=== PATIENT | female | born 1970 | race Two or more races ===

== ENCOUNTER → 2024-09-11 | Outpatient (CLI) | payer OTHER, MEDICAID ==
[~2024-09-11] VITALS: Ht 172.7 cm; Wt 117.0 kg
[~2024-09-11] MED LIST: AMLO1TAB22 PO; HEPARIN 1,000 UNITS/ml 1ML VIAL ONE; IODIXANOL 320MG/ML 100ML BTL IV ONE; LIDOCAINE 2%HCL (LOCAL ANESTH.) INJ 20ML MDV ONE; LISI40TA16 PO; MIDAZOLAM HCL 2MG/2ML 2ml VIAL (1mg/ml) ONE; ONDA-155 PO; ceFAZolin 1GM/50ML 50 ML IV ONE; fentaNYL CITRATE 100 MCG/2 ML VL ONE
--- NOTE | 2024-09-11 07:38 | DVH ---
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 Lungs: No focal consolidation. Pleura: No effusion. No pneumothorax. Cardiomediastinal contours: Unremarkable Bones: No acute osseous abnormality. IMPRESSION: 1. Malpositioned right infusion catheter. Repositioning is recommended. 2. No acute cardiopulmonary abnormality.
--- NOTE | 2024-09-11 11:26 | DVH ---
XY Insertion of Venous Cath, HISTORY: PORT A CATH REVISION PROCEDURE: Informed consent was obtained. The patient was placed supine on the interventional table. 1 gram of Ancef was given. The right upper chest and neck base were prepped with chlorhexidine which was allowed to dry and draped in the usual sterile fashion. Time out was performed. Through a small incision, the port was dissected free and the port and attached catheter were disconnected. The port was removed from the pocket. A wire was placed through the catheter into the IJ vein. The catheter wa s removed over the wire and a Tree catheter was placed over the wire. Contrast injection identifies l ocation of the IJ vein. A wire was navigated down into the IVC. The tract was dilated to 8 Fr. A 9 Fr peel away sheath was placed over the wire into the IJ vein. The old port catheter was placed into th e peel away sheath into the SVC and RA. The peel away sheath was removed. The wire was removed. The p ort catheter was reconnected to the port itself and was placed into the subcutaneous pocket. The ski n openings were sutured closed in 1 layers with Vicryl, as well as and Dermabond , steristrips and th en sterile dressings applied. A post procedure image was obtained. No immediate complication was iden tified. DAP 531 FLUOROSCOPY TIME: 8.1 minutes. Contrast 5 mL SEDATION: Dr. Maria Burnett was personally responsible for the administration of moderate sedation during the procedure performed, including the use of an independent trained observer who had no other duties during the procedure. The drugs utilized were IV fentanyl and versed (see nursing log for details). The total time of supervision by the attending physician was approximately 75 minutes. FINDINGS: Patent right internal jugular vein. The old port catheter tip was malpositioned in the righ t IJ. Post procedure image demonstrates [id number] in the right upper chest with the tip in the right atrium. IMPRESSION: Portacatheter revision by repositioning the catheter tip into the right atrium with the same portacat heter.
--- NOTE | 2024-09-11 16:19 | DVH ---
US US GUIDANCE FOR NEEDLE PLACEME, HISTORY: LYMPHNODE BX PROCEDURE: Informed consent was obtained. The patient was placed supine on the CT scanner, and limite d US was performed of the right chest. The skin over the area of interest was prepped with chlorhexi dine which was allowed to dry and draped in the usual sterile fashion. Time out was performed. 1% loc al lidocaine was administered. With intermittent US guidance, Temno 17 gauge outer coaxial guiding ne edle was advanced into the right axillary lymph node. Multiple biopsies were obtained using Temno 18 gauge inner core biopsy needle. The specimens were placed in formalin and RPMI and sent to pathology for analysis. The needle was withdrawn. Post procedural images were obtained. No immediate complicati on was identified. FINDINGS: Abnormal right axillary lymph node. Intra-procedural images demonstrate biopsy needle withi n the margin of targeted lesion. Post procedural images do not demonstrate any significant hemorrhag e. IMPRESSION: US guided right axillary lymph node biopsy. Pathology results pending.
== END | disposition home or self-care (01) ==
LOC: XYW 06:37 → EDSTATUS 09:02
PROVIDERS: ATTEND Student in an Organized Health Care Education/Training Program
DX: C50.412 Malignant neoplasm of upper-outer quadrant of left female breast (principal); T82.524A Displacement of infusion catheter, initial encounter; C81.94 Hodgkin lymphoma, unspecified, lymph nodes of axilla and upper limb; I10 Essential (primary) hypertension; E66.9 Obesity, unspecified; Z79.899 Other long term (current) drug therapy; Z98.890 Other specified postprocedural states; Y83.8 Other surgical procedures as the cause of abnormal reaction of the patient, or of later complication, without mention of misadventure at the time of the procedure
CPT/HCPCS: 36576; 38505; 71045; 76942; 88305; 88342; C1758; J0690; J1644; J2250; J3010; J7040; Q9967; 99152